=== PATIENT | female | born 1980 | race Caucasian/White ===

== ENCOUNTER 2018-03-24 13:04 | Day surgery (SDC) | payer MEDICAID ==
[~2018-03-24] VITALS: Ht 167.6 cm; Wt 163.6 kg
[2018-03-24] MEDS ORDERED: fentaNYL/PF 50MCG/1 ML 2ML syringe ONE (13:11)
[2018-03-24] MEDS ORDERED: LIDOcaine Viscous 15ml cup ONE (13:12)
[2018-03-24] MEDS ORDERED: MIDAZolam 5mg/5ml vial ONE (13:12)
[2018-03-24 13:14] VITALS: BP 160/98
[2018-03-24] MEDS ORDERED: MULT-933 PO (13:23)
[2018-03-24] MEDS ORDERED: CALC250T2 PO (13:25)
[2018-03-24] MEDS ORDERED: OMEG-156 PO (13:26)
[2018-03-24] MEDS ORDERED: ERGO500041 PO (13:26)
[2018-03-24] MEDS ORDERED: ESCI10TA54 PO (13:27)
[2018-03-24 14:42] VITALS: BP 138/93
[2018-03-24 14:52] VITALS: BP 141/95
[2018-03-24 15:02] VITALS: BP 133/86
[2018-03-24 15:12] VITALS: BP 130/81
== END 2018-03-24 15:36 | disposition home or self-care (01) ==
LOC: GI LAB 13:04
PROVIDERS: ATTEND Internal Medicine Gastroenterology
DX: Z01.818 Encounter for other preprocedural examination (principal); E66.01 Morbid (severe) obesity due to excess calories; K29.80 Duodenitis without bleeding; K29.50 Unspecified chronic gastritis without bleeding; I10 Essential (primary) hypertension; G47.33 Obstructive sleep apnea (adult) (pediatric); Z68.43 Body mass index [BMI] 50.0-59.9, adult; Z87.891 Personal history of nicotine dependence; Z90.49 Acquired absence of other specified parts of digestive tract; Z98.890 Other specified postprocedural states; Z79.899 Other long term (current) drug therapy
CPT/HCPCS: 43239; 99152; J2250; J3010; J7030; A4620; G0500

== ENCOUNTER 2024-04-17 14:14 | Outpatient (CLI) | payer MEDICAID ==
[~2024-04-17 14:14] MED LIST: CALC250T2 PO; ERGO500041 PO; ESCI-8 PO; MULT-933 PO; OMEG-156 PO
== END 2024-04-17 23:59 | disposition home or self-care (01) ==
LOC: RAD 14:14
PROVIDERS: ATTEND Nurse Practitioner
DX: E04.2 Nontoxic multinodular goiter (principal)
CPT/HCPCS: 76536